=== PATIENT | male | born 1940 | race Caucasian/White ===

== ENCOUNTER → 2018-07-12 07:57 | Outpatient (CLI) | payer OTHER, SELFPAY ==
[2018-07-12 08:49] LABS: Add Manual Diff / Slide Review NO; Basophils Percent Auto 0.5 % (0-2); Eosinophils Percent Auto 3.4 % (2-4); Hematocrit 46.3 % (41-53); Hemoglobin 15.8 g/dL (13.5-17.5); Lymphocytes Percent Auto 32.4 % (25-40); Mean Corpuscular HGB Conc 34.1 % (30-36); Mean Corpuscular Hemoglobin 31.7 PG (26-34); Mean Corpuscular Volume 92.9 fL (80-100); Monocytes Percent Auto 9.3 % (3-14); Neutrophils Absolute Auto 4200 /uL (3000-5900); Neutrophils Percent Auto 54.4 % (50-75); Platelet Count 225 X10^3/uL (150-400); Red Blood Cell Count 4.98 X10^6/uL (4.5-5.9); Red Cell Distribution Width 12.8 % (11.6-14.8); White Blood Cell Count 7.8 X10^3/uL (4.5-11.0)
[2018-07-12 08:59] LABS: Alanine Aminotransferase 41 IU/L (21-72); Albumin 4.4 g/dL (3.5-5.0); Albumin Globulin Ratio 1.6 (1.0-2.8); Alkaline Phosphatase 60 U/L (38-126); Aspartate Aminotransferase 35 IU/L (17-59); BUN Creatinine Ratio 23.3 (6-22); Blood Urea Nitrogen 21 mg/dL (9-20); Calcium 9.5 mg/dL (8.4-10.2); Carbon Dioxide 28 mmol/L (22-32); Chloride 106 mmol/L (98-107); Cholesterol 126 mg/dL (140-199); Estimated Glomerular Filt Rate > 60.0 mL/min (>60); Globulin 2.8 g/dL (1.7-4.1); Glucose 108 mg/dL (80-110); HDL Cholesterol 47 mg/dL (40-60); HEMOLYSIS < 15 (0-50); LDL Cholesterol Calculated 61 mg/dL (<100); Sodium 147 mmol/L (137-145); Total Protein 7.2 g/dL (6.3-8.2); Triglycerides 89 mg/dL (35-150)
[2018-07-12 09:01] LABS: Hemoglobin A1C% w Est Avg Glu 6.1 % (4.0-6.0)
[2018-07-12 09:27] LABS: Prostate Specific Antigen Scrn 0.228 ng/mL (0.1-4.0)
[2018-07-12 09:39] LABS: Thyroid Stimulating Hormone 2.73 uIU/mL (0.47-4.68)
== END ==
PROVIDERS: PCP Family Medicine; Visit Provider Family Medicine
DX: C61 Malignant neoplasm of prostate (principal); E11.9 Type 2 diabetes mellitus without complications; E78.5 Hyperlipidemia, unspecified; I10 Essential (primary) hypertension; I25.10 Atherosclerotic heart disease of native coronary artery without angina pectoris; Z12.5 Encounter for screening for malignant neoplasm of prostate
CPT/HCPCS: 36415; 80053; 80061; 83036; 84443; 85025; G0103

== ENCOUNTER → 2018-10-16 08:11 | Outpatient (CLI) | payer OTHER, SELFPAY ==
--- NOTE | 2018-10-16 08:18 | DI.MRI.S_ITS ---
PROCEDURE: MR HEAD/BRAIN WO CON INDICATIONS: headach TECHNIQUE: Non-contrast axial T1 spin echo, axial T2 fast spin echo, sagittal and axial FLAIR, coronal T2 fast spin echo, axial gradient echo, axial diffusion and ADC through the brain. COMPARISON: None. FINDINGS: Image quality: Excellent. CSF spaces: Ventricles appear symmetric in size and shape. Basal cisterns are patent. No extra-axial fluid collections. Brain: No intracranial bleeds or mass effects. There is cerebral volume loss for age. There are periventricular and deep white matter chronic small vessel ischemic changes. Brainstem appears normal. Diffusion-weighted images show no acute ischemic insults. No chronic ischemic insults. Normal intravascular flow voids are present. Skull and face: Calvarial bone marrow is normal in signal. Orbits are normal. Sinuses: Sinuses and mastoids are clear. IMPRESSION: Scattered nonspecific white matter signal changes, statistically represent chronic microvascular ischemic disease, although other demyelinating, infectious, inflammatory, neurodegenerative etiologies are in the differential. Please correlate clinically. No evidence of acute ischemia. Dictated by: Farshad Raphael M.D. on 10/16/2018 at 9:23 Approved by: Farshad Raphael M.D. on 10/16/2018 at 9:29
== END ==
PROVIDERS: Family Provider Family Medicine; PCP Family Medicine; Visit Provider Family Medicine
DX: R51 Headache (principal)
CPT/HCPCS: 70551

== ENCOUNTER 2018-12-18 07:11 | Day surgery (SDC) | payer OTHER, SELFPAY ==
--- NOTE | 2018-12-18 | PATH_ITS ---
[facility] Accession Number: [id number] . 01 Material submitted: . HEPATIC FLEXURE POLYP . 02 Diagnosis: Biopsy, Hepatic Flexure Polyp: Tubular adenoma involving all biopsy fragments. MRV/12/19/2018 . 02 Electronically signed: . Ronnie Velasquez MD, Pathologist NPI- [id number] . 01 Gross description: . HEPATIC FLEXURE POLYP: Received in formalin are 2 fragment(s) of ballesteros, soft tissue measuring 0.3 x 0.2 x 0.2 cm to 0.4 x 0.4 x 0.3 cm which is entirely submitted and submitted entirely in 1 cassette(s) /DMC /DMC . 02 Pathologist provided ICD-10: D12.3 . 02 CPT . 383948 Performed at: 01 [facility] [address] [id number] MD Roland Cesar MD Phone: [phone] Performed at: 02 [facility] [address] [place], [place] [id number] MD Consuelo Humphrey MD Phone: [phone]
[2018-12-18 07:39] VITALS: BP 154/84; PULSE 93; RESP 18; TEMP 36.2; O2SAT 98
--- NOTE | 2018-12-18 08:32 | PM.HP.1 ---
History of Present Illness Date Patient Seen: 12/18/18 Time Patient Seen: 08:32 Chief complaint: [id number] SCREENING COLONOSCOPY Narrative: 78-year-old male who presents for colorectal screening. His last examination for such was actually 17 years ago. On further history today he denies any recent gastrointestinal symptoms. No nausea, vomiting, loss of appetite, unexplained weight loss, abdominal pain, change in bowel habits, diarrhea, constipation, melena, hematochezia, or bright red blood per rectum. Patient History Medical History Arm pain (Chronic ~1985) Elevated PSA (Chronic ~11/02/10) Hearing deficit (Chronic) History of urinary incontinence (Chronic ~2010) Prostate cancer (Chronic ~2010) Chicken pox (Resolved ~1947) Mumps (Resolved ~1951) Surgical History Anesthesia (Resolved) History of prostate surgery (Resolved ~2010) History of surgery (Resolved ~04/09/14) Family History Father Heart disease Mother No problems noted. Sister No problems noted. Family & Social History Family History Father Heart disease Mother No problems noted. Sister No problems noted. Meds Home Medications Medication Instructions Recorded Confirmed Type aspirin [Aspir-81] 81 mg PO DAILY #0 05/25/17 12/18/18 History cholecalciferol (vitamin D3) 5,000 units PO DAILY #0 05/25/17 12/18/18 History multivitamin [Multiple Vitamins] 1 tab PO DAILY #0 05/25/17 12/18/18 History omega 7-pqi-dwi-fish oil [Fish Oil] 1,000 mg PO DAILY #0 05/25/17 12/18/18 History atorvastatin 80 mg tablet 80 mg PO HS #100 tab 05/23/18 12/18/18 Rx lisinopril 5 mg tablet 5 mg PO QDAY #90 tab 05/23/18 12/18/18 Rx metoprolol tartrate 25 mg tablet 25 mg PO BID #180 tab 05/23/18 12/18/18 Rx alprazolam 0.25 mg tablet 0.25 mg PO .prn #4 tab 10/11/18 12/18/18 Rx metformin 500 mg PO BIDCC 12/18/18 12/18/18 History Allergies Allergy/AdvReac Type Severity Reaction Status Date / Time No Known Drug Allergies Allergy Verified 12/18/18 07:26 Review of Systems Review of Systems All systems reviewed & are unremarkable except as noted in HPI and below Exam Vital Signs (past 8 hours): - 12/18/18 07:39 Temperature 97.2 F L Pulse Rate 93 H Respiratory Rate 18 Blood Pressure 154/84 H Pulse Oximetry 98 Oxygen Delivery Method Room Air Narrative Exam Narrative: Well-nourished well-developed male in no acute distress. Alert oriented x3. is at the bedside for my entire visit. Sclera nonicteric Regular rate rhythm Abdomen soft, nondistended, nontender No audible wheezes Extremities show no clubbing or cyanosis Objective Labs Labs: No recent laboratory or radiographic studies for review. Assessment & Plan Assessment & Plan narrative: 78-year-old male requiring colorectal screening since it has been considerable interval from his last examination. Colonoscopy is once again recommended. Technical details of the procedure were reviewed. Risks, benefits, and alternatives were explained. Risks including but not limited to sedation, aspiration, bleeding, pain, missed lesion, incomplete examination, need for further radiographic studies, colonic perforation, need for major abdominal surgery, and all attendant risks of major surgery were explained in detail. All questions were answered to his satisfaction, and he voiced understanding. Consent was placed on the chart. We will proceed as above.
--- NOTE | 2018-12-18 08:34 | PM.PREOP ---
Pre-operative Note Interval Note History & Physical reviewed/Exam performed by Physician: Yes Changes to H&P: No H&P completed within 30 days and has changed as indicated here:: Patient seen and examined today. History and physical examination placed on the chart. Obviously, there have been no changes in the last 15 min. Proceed with colonoscopy today as planned. ASA Class (for procedural sedation): II
[2018-12-18] MEDS: MIDAZOLAM 5 MG/5 ML VIAL IV (08:51)
[2018-12-18] MEDS: fentaNYL 250 MCG/5 ML INJ IV (08:51)
--- NOTE | 2018-12-18 09:00 | PM.OP.ENDO ---
Operative Date/Time/Diagnoses Date of procedure: 12/18/18 Time of procedure: 09:00 Pre-op diagnosis: Colorectal screening Post-op diagnosis: other (Wagoner diverticulosis and colon polyp) Procedure & Clinicians Study performed: 1. Sedation per surgeon 2. Colonoscopy with cold forceps polypectomy Same procedure as scheduled: Yes Indications: 78-year-old male whose last colonoscopy was 17 years ago. He presents now for colorectal screening. Colonoscopy is once again recommended. Surgeon: Cesar Graham Procedure Notes SCOAP/Timeout: Yes Procedure in detail: After obtaining informed consent, the patient was brought to the GI suite and placed in the left lateral decubitus position on the examination table. After placement of appropriate monitors, the patient was given incremental doses of Versed and Fentanyl until an appropriate level of sedation was achieved. A time out was held per SCOAP protocol. A digital rectal examination was performed and did not reveal any masses or obstructing lesions. The colonoscope was gently passed into the patient's anus and the entire colon navigated to the level of the cecum with minimal difficulty. Terminal ileum was intubated and noted to be grossly normal. Once in the cecum, the scope was withdrawn being sure to go before and beyond all mucosal folds and prominences and get an excellent examination. The findings are noted above. At the level of the rectal vault, the scope was retroflexed and the internal anal canal was examined. The scope was straightened and air aspirated from the colon. The instrument was removed from the patient's body and the procedure was concluded. The patient was allowed to awaken from sedation without difficulty and taken to the post-anesthesia care unit in good condition. Scope withdrawal time: 7:07 min Sedation minutes: 21 Findings: diverticulosis, internal hemorrhoids (Grade 2) and polyp Specimen(s): other (1. Hepatic flexure polyp) Complications: none Recommendations: Colonscopy in 5 years, High fiber diet and Will call with biopsy results Plan for aftercare: 1. Discharge home Follow up: as needed Disposition: PACU
[2018-12-18 09:03] VITALS: BP 121/73; PULSE 82; RESP 15; TEMP 36.7; O2SAT 95
[2018-12-18 09:08] VITALS: BP 137/85; PULSE 85; RESP 14; O2SAT 95
[2018-12-18 09:13] VITALS: BP 127/83; PULSE 81; RESP 16; TEMP 36.3; O2SAT 96
[2018-12-18 09:20] VITALS: BP 138/80; PULSE 78; RESP 14; TEMP 36.5; O2SAT 96
== END 2018-12-18 09:32 | disposition home or self-care (01) ==
PROVIDERS: Family Provider Family Medicine; PCP Family Medicine; Visit Provider Surgery
PROC: 0DJD8ZZ Inspection of Lower Intestinal Tract, Via Natural or Artificial Opening Endoscopic (ICD-10-PCS; CPT 45378; principal; 2018-12-18 08:45)
DX: Z12.11 Encounter for screening for malignant neoplasm of colon (principal); K57.30 Diverticulosis of large intestine without perforation or abscess without bleeding; K64.1 Second degree hemorrhoids; D12.3 Benign neoplasm of transverse colon
CPT/HCPCS: 45380; 99152; J2250; J3010

== ENCOUNTER → 2019-03-14 09:32 | Outpatient (CLI) | payer OTHER, SELFPAY ==
[2019-03-14 11:05] LABS: Hemoglobin A1C% w Est Avg Glu 5.7 % (4.0-6.0)
[2019-03-14 11:21] LABS: Prostate Specific Antigen Scrn 0.335 ng/mL (0.1-4.0)
== END ==
PROVIDERS: Family Provider Family Medicine; PCP Family Medicine; Visit Provider Family Medicine
DX: C61 Malignant neoplasm of prostate (principal)
CPT/HCPCS: 36415; 83036; G0103

== ENCOUNTER → 2019-11-05 08:12 | Outpatient (CLI) | payer MEDICARE, SELFPAY ==
[2019-11-05 09:16] LABS: Add Manual Diff / Slide Review NO; Basophils Absolute Auto 0 /uL (0-100); Basophils Percent Auto 0.4 % (0-2); Eosinophils Absolute Auto 200 /uL (0-450); Eosinophils Percent Auto 2.3 % (2-4); Hemoglobin 15.4 g/dL (13.5-17.5); Lymphocytes Absolute Auto 1900 /uL (1100-4500); Lymphocytes Percent Auto 26.6 % (25-40); Mean Corpuscular HGB Conc 34.2 % (30-36); Mean Corpuscular Hemoglobin 32.5 PG (26-34); Mean Corpuscular Volume 94.8 fL (80-100); Monocytes Absolute Auto 900 /uL (0-900); Monocytes Percent Auto 11.8 % (3-14); Neutrophils Absolute Auto 4200 /uL (1500-7000); Neutrophils Percent Auto 58.9 % (50-75); Platelet Count 227 X10^3/uL (150-400); Red Blood Cell Count 4.75 X10^6/uL (4.5-5.9); Red Cell Distribution Width 14.1 % (11.6-14.8); White Blood Cell Count 7.2 X10^3/uL (4.5-11.0)
[2019-11-05 09:21] LABS: Hemoglobin A1C% w Est Avg Glu 5.6 % (4.0-6.0)
[2019-11-05 09:27] LABS: Alanine Aminotransferase 29 IU/L (<50); Albumin 4.3 g/dL (3.5-5.0); Albumin Globulin Ratio 1.3 (1.0-2.8); Alkaline Phosphatase 74 U/L (38-126); Aspartate Aminotransferase 37 IU/L (17-59); BUN Creatinine Ratio 21.1 (6-22); Bilirubin Total 0.8 mg/dL (0.2-1.3); Blood Urea Nitrogen 19 mg/dL (9-20); Carbon Dioxide 25 mmol/L (22-32); Chloride 105 mmol/L (98-107); Cholesterol 129 mg/dL (140-199); Estimated Glomerular Filt Rate > 60.0 mL/min (>60); Globulin 3.4 g/dL (1.7-4.1); Glucose 118 mg/dL (80-110); HDL Cholesterol 43 mg/dL (40-60); HEMOLYSIS < 15 (0-50); LDL Cholesterol Calculated 73 mg/dL (<100); Sodium 142 mmol/L (137-145); Total Protein 7.7 g/dL (6.3-8.2); Triglycerides 67 mg/dL (35-150)
== END ==
PROVIDERS: Family Provider Family Medicine; PCP Family Medicine; Referring Provider Family Medicine; Visit Provider Family Medicine
DX: E11.9 Type 2 diabetes mellitus without complications (principal); I25.10 Atherosclerotic heart disease of native coronary artery without angina pectoris
CPT/HCPCS: 36415; 80053; 80061; 83036; 85025

== ENCOUNTER → 2019-11-15 06:43 | Outpatient (CLI) | payer MEDICARE, SELFPAY ==
--- NOTE | 2019-11-15 06:57 | DI.ECHO.S_ITS ---
Echocardiogram Report + + :Name: WINSTON MARIE Study Date: 11/15/2019 Height: 70 in : :[facility] Weight: 188 lb : : Gender: Male BSA: 2.0 m2 : :: 1940 Age: 79 yrs BP: 124/78 mmHg: :Reason For Study: DIZZINESS : :Ordering Physician: Dr. Gooden : :Jh Performed By: Chary Bobby : :Referring: WILLA REID : + + Interpretation Summary 1) Normal left ventricular size, thickness, wall motion, and systolic function (EF 60-65%). 2) Normal right ventricular size and function. 3) No significant valvular abnormalities. 4) No prior Echo available for comparison. Procedure: A two-dimensional transthoracic echocardiogram with color flow and Doppler was performed. The study quality was technically adequate. There is no prior echocardiogram noted for this patient. The patient was in normal sinus rhythm during the exam. Left Ventricle: The left ventricle is normal in size and wall thickness. The ejection fraction is estimated to be 60-65%. Diastolic parameters suggest probable normal left ventricular diastolic function and normal filling pressures. Right Ventricle: The right ventricle is normal in size and function. Atria: Both atria are normal in size. There is no Doppler evidence for an interatrial shunt. Mitral Valve: The mitral valve is normal in structure and function. There is mild mitral annular calcification. There is no mitral regurgitation noted. Aortic Valve: The aortic valve is trileaflet. The aortic valve opens well. There is no aortic valve stenosis. No aortic regurgitation is present. Tricuspid Valve: The tricuspid valve is normal in structure and function. There is a trace or physiologic amount of tricuspid regurgitation. Pulmonary artery pressures cannot be estimated because of the lack of a measurable TR jet velocity. Pulmonic Valve: The pulmonic valve is not well seen, but is grossly normal. There is no pulmonic valvular regurgitation. Great Vessels: The aortic root is normal size. The ascending aorta is at the upper limits of normal in size. The aortic arch is at the upper limits of normal in size. The IVC is of normal diameter and collapses greater than 50% with a sniff. This suggests a low right atrial pressure of 3 mm Hg. Pericardium/ Pleura There is no pericardial effusion. MMode/2D Measurements & Calculations LVIDd: 4.5 cm LVOT diam: 2.2 cm LVIDs: 3.2 cm Ao root diam: 3.4 cm FS: 29.0 % asc Aorta Diam: 3.5 cm EPSS: 0.72 cm Ao Arch Diam (Prox Trans): 3.3 cm IVSd: 1.0 cm LVPWd: 1.0 cm LV cummins. diameter/BSA (cm/m^2): 2.2 LV sys. diameter/BSA (cm/m^2): 1.6 LA A2 area: 17.8 cm2 RA long axis: 4.3 cm LA A4 area: 13.8 cm2 RA area: 10.3 cm2 LA length (vol): 4.5 cm RA vol: 20.9 ml LA vol: 46.1 ml RA : 10.3 ml/m2 LA vol index: 22.7 ml/m2 IVC diam: 1.2 cm RVD1 (basal): 3.2 cm RVD2 (mid): 3.1 cm TAPSE: 2.4 cm Doppler Measurements & Calculations Ao V2 max: 128.9 cm/sec LVOT Max Nino: 110.9 cm/sec Ao V2 mean: 94.6 cm/sec LV V1 max P.9 mmHg Ao max P.7 mmHg LV V1 VTI: 22.9 cm Ao mean P.9 mmHg DARRON(I,D): 3.2 cm2 Ao V2 VTI: 27.5 cm DARRON(V,D): 3.3 cm2 sev ratio: 0.83 DARRON indexed to BSA (cm^2/m^2): 1.6 MV E max nino: 67.3 cm/sec PA V2 max: 92.6 cm/sec MV A max nino: 80.6 cm/sec PA V2 mean: 61.5 cm/sec MV E/A: 0.84 PA mean P.7 mmHg Med Peak E' Nino: 5.0 cm/sec PA pr(Accel): 32.3 mmHg E/E' med: 13.3 PA Accel Time: 0.09 sec Lat Peak E' Nino: 7.5 cm/sec E/E' lat: 9.0 E/e' average: 11.2 MV dec time: 0.35 sec MV P1/2t: 101.1 msec MV P1/2t max nino: 68.1 cm/sec SV(LVOT): 86.8 ml MVA(P1/2t): 2.2 cm2 _ Reading Physician:09:32 AM
== END ==
PROVIDERS: Family Provider Family Medicine; PCP Family Medicine; Referring Provider Family Medicine; Visit Provider Family Medicine
DX: I49.8 Other specified cardiac arrhythmias (principal); I25.10 Atherosclerotic heart disease of native coronary artery without angina pectoris; R42 Dizziness and giddiness; I45.9 Conduction disorder, unspecified; Z95.5 Presence of coronary angioplasty implant and graft
CPT/HCPCS: 93306

== ENCOUNTER → 2019-11-15 10:49 | Outpatient (CLI) | payer MEDICARE, SELFPAY ==
--- NOTE | 2019-12-07 15:56 | P.HOLT.S_ITS ---
Switchboard Mechanic Report Referral & Results Date Patient Seen: 11/15/19 Requesting provider: Giacomo Peñaloza Indication: Dizziness Duration of monitoring (days): 14 Diary information: There were 10 patient triggered events and 5 patient diary entries All 15 of these events were associated with sinus rhythm and supraventricular dysrhythmias or PACs Data: Minimum heart rate identified was 50 beats per minute at 23:20 on 11/24/2019 Maximum sinus heart rate was 125 beats per minute at 13:55 on 11/22/2019 Maximum overall heart rate was 190 beats per minute at 14:54 on 11/26/2019 during a 4 beat run of SVT Approximately 3.4% of identified beats were PACs or supraventricular ectopic in origin Less than 1% of identified beats were ventricular ectopic in origin 7 runs of SVT/atrial tachycardia were identified by the computer longest lasting 32 seconds at a rate of 112, which suggest atrial tachycardia rather than true SVT Impression: Minor supraventricular dysrhythmias as above. No clear correlation between patient's symptoms any serious dysrhythmia. Patient's symptoms might be due to occasional PACs Clinical correlation suggested
== END ==
PROVIDERS: Family Provider Family Medicine; PCP Family Medicine; Referring Provider Family Medicine; Visit Provider Family Medicine
DX: R42 Dizziness and giddiness (principal); I49.8 Other specified cardiac arrhythmias
CPT/HCPCS: 0296T; 0298T

== ENCOUNTER → 2020-02-01 10:17 | Outpatient (CLI) | payer MEDICARE, SELFPAY ==
--- NOTE | 2020-02-02 12:33 | DI.NM.S_ITS ---
DATE OF SERVICE: 02/01/2020 PROCEDURE PERFORMED:: Exercise treadmill stress and rest myocardial perfusion study with gating to assess ejection fraction and regional wall motion performed as a one day protocol. ORDERING PROVIDER:: Dr. Magali Avery. INDICATIONS:: The patient is a 79-year-old male with a history of LAD stenting, who now presents with recurrent exertional chest discomfort. EXERCISE TREADMILL TESTING:: The patient was able to exercise for 6 minutes, 17 seconds on a standard Romulo protocol, suggesting average exercise capacity with an ELIZABET of 0%. He had a normal heart rate and blood pressure response to exercise, achieving a maximum heart rate of 132 bpm (92% of his predicted maximum). He had no chest discomfort. His resting ECG shows a right bundle branch block, but relatively normal ST segments. With exercise, there were no significant ST-segment shifts or arrhythmias. At 5 minutes, 20 seconds of exercise, had a heart rate of 123 bpm, 26.3 mCi of technetium-99m Myoview was injected and the patient was imaged 20 minutes later using a gated SPECT acquisition protocol. Earlier in the day, he had been injected with 11.0 mCi of technetium-99m Myoview at rest and was imaged 30 minutes later using a gated SPECT acquisition protocol. FINDINGS: 1. RAW DATA: There is fairly good myocardial tracer uptake, although there is fairly clear evidence for diaphragmatic attenuation. The heart/lung ratio is normal at 0.34 and the TID ratio is normal at 0.77. 2. QUANTITATED GATED SPECT: Post-stress ejection fraction is estimated at 77% without any focal wall motion abnormality and specifically the inferior wall appears to have normal contractility. The resting images show a similar contraction pattern with an ejection fraction of 75% with a resting end-diastolic volume of 89 mL. 3. MYOCARDIAL PERFUSION IMAGING: Immediate post-stress supine images shows a fairly normal myocardial perfusion pattern, although with mildly reduced counts in the proximal to mid inferior wall in a pattern that would be consistent with diaphragmatic attenuation, supported by its complete resolution on the prone images, which revealed a completely normal perfusion pattern without any perfusion defects. The resting images show an identical perfusion pattern to that of the post-stress perfusion images without any significant improvement in the inferior defect. CONCLUSIONS:: 1. Normal myocardial perfusion study. 2. There is a mild fixed proximal to mid inferior wall defect that resolves completely on prone imaging, consistent with diaphragmatic attenuation. There is no evidence for any significant myocardial ischemia or previous myocardial infarction. 3. Normal left ventricular systolic function without any focal wall motion abnormality. 4. Average exercise capacity without angina or ECG evidence of ischemia. Leo Scruggs - Manuel/jose doc#: [id number]/job#: [id number] dd: 02/02/2020 11:23:00 dt: 02/02/2020 12:03:00 DICTATING MD/COPIES TO: Puma Parson MD; SILVIANO Edwards; Magali Avery MD COPIES MNE: ROSEMARY; ;
== END ==
PROVIDERS: Family Provider Family Medicine; PCP Family Medicine; Referring Provider Internal Medicine Cardiovascular Disease; Visit Provider Internal Medicine Cardiovascular Disease
DX: R07.89 Other chest pain (principal); I25.10 Atherosclerotic heart disease of native coronary artery without angina pectoris; Z95.5 Presence of coronary angioplasty implant and graft
CPT/HCPCS: 78452; 93017; A9502

== ENCOUNTER → 2020-09-17 08:42 | Outpatient (CLI) | payer MEDICARE, SELFPAY ==
[2020-09-17 10:42] LABS: Add Manual Diff / Slide Review NO; Basophils Absolute Auto 0 /uL (0-100); Basophils Percent Auto 0.6 % (0-2); Eosinophils Absolute Auto 200 /uL (0-450); Eosinophils Percent Auto 2.3 % (2-4); Hematocrit 45.1 % (41-53); Hemoglobin 15.4 g/dL (13.5-17.5); Lymphocytes Absolute Auto 2700 /uL (1100-4500); Lymphocytes Percent Auto 31.6 % (25-40); Mean Corpuscular HGB Conc 34.2 % (30-36); Mean Corpuscular Hemoglobin 32.2 PG (26-34); Mean Corpuscular Volume 94.4 fL (80-100); Monocytes Absolute Auto 800 /uL (0-900); Monocytes Percent Auto 9.5 % (3-14); Neutrophils Absolute Auto 4800 /uL (1500-7000); Platelet Count 202 X10^3/uL (150-400); Red Blood Cell Count 4.78 X10^6/uL (4.5-5.9); Red Cell Distribution Width 13.4 % (11.6-14.8); White Blood Cell Count 8.6 X10^3/uL (4.5-11.0)
[2020-09-17 11:08] LABS: BUN Creatinine Ratio 24.3 (6-22); Blood Urea Nitrogen 25 mg/dL (9-20); Calcium 9.4 mg/dL (8.4-10.2); Carbon Dioxide 26 mmol/L (22-32); Chloride 106 mmol/L (98-107); Cholesterol 99 mg/dL (140-199); Estimated Glomerular Filt Rate > 60.0 mL/min (>60); Glucose 112 mg/dL (80-110); HDL Cholesterol 48 mg/dL (40-60); HEMOLYSIS < 15 (0-50); LDL Cholesterol Calculated 32 mg/dL (<100); Potassium 4.5 mmol/L (3.4-5.1); Sodium 139 mmol/L (137-145); Triglycerides 97 mg/dL (35-150)
== END ==
PROVIDERS: Family Provider Family Medicine; PCP Family Medicine; Referring Provider Internal Medicine Cardiovascular Disease; Visit Provider Internal Medicine Cardiovascular Disease
DX: I10 Essential (primary) hypertension (principal); E78.5 Hyperlipidemia, unspecified
CPT/HCPCS: 36415; 80048; 80061; 85025

== ENCOUNTER → 2021-04-29 10:12 | Outpatient (CLI) | payer MEDICARE, SELFPAY ==
[2021-04-29 10:38] LABS: COVID19 -Nasal RAPID Negative (Negative)
== END ==
PROVIDERS: Family Provider Family Medicine; PCP Family Medicine; Visit Provider Student in an Organized Health Care Education/Training Program
DX: R05 Cough (principal); R43.2 Parageusia; R53.83 Other fatigue; Z20.822 Contact with and (suspected) exposure to COVID-19
CPT/HCPCS: 87635

== ENCOUNTER → 2021-12-02 08:03 | Outpatient (CLI) | payer MEDICARE, SELFPAY ==
[2021-12-02 09:57] LABS: Hemoglobin A1C% w Est Avg Glu 6.6 % (4.0-6.0)
[2021-12-02 09:59] LABS: Add Manual Diff / Slide Review NO; Basophils Absolute Auto 100 /uL (0-100); Basophils Percent Auto 0.7 % (0-2); Eosinophils Absolute Auto 100 /uL (0-450); Eosinophils Percent Auto 1.4 % (2-4); Hematocrit 46.7 % (41-53); Hemoglobin 15.7 g/dL (13.5-17.5); Lymphocytes Absolute Auto 2100 /uL (1100-4500); Lymphocytes Percent Auto 26.8 % (25-40); Mean Corpuscular HGB Conc 33.7 % (30-36); Mean Corpuscular Hemoglobin 32.1 PG (26-34); Mean Corpuscular Volume 95.4 fL (80-100); Monocytes Absolute Auto 600 /uL (0-900); Monocytes Percent Auto 7.7 % (3-14); Neutrophils Absolute Auto 4900 /uL (1500-7000); Neutrophils Percent Auto 63.4 % (50-75); Platelet Count 199 X10^3/uL (150-400); Red Cell Distribution Width 14.1 % (11.6-14.8); White Blood Cell Count 7.7 X10^3/uL (4.5-11.0)
[2021-12-02 10:20] LABS: Alanine Aminotransferase 51 IU/L (<50); Albumin 4.7 g/dL (3.5-5.0); Albumin Globulin Ratio 1.5 (1.0-2.8); Alkaline Phosphatase 44 U/L (38-126); Aspartate Aminotransferase 50 IU/L (17-59); BUN Creatinine Ratio 16.2 (6-22); Bilirubin Total 0.9 mg/dL (0.2-1.3); Blood Urea Nitrogen 17 mg/dL (9-20); Calcium 9.5 mg/dL (8.4-10.2); Carbon Dioxide 28 mmol/L (22-32); Chloride 104 mmol/L (98-107); Cholesterol 109 mg/dL (140-199); Estimated Glomerular Filt Rate > 60.0 mL/min (>60); Globulin 3.1 g/dL (1.7-4.1); Glucose 121 mg/dL (80-110); HDL Cholesterol 54 mg/dL (40-60); HEMOLYSIS < 15 (0-50); LDL Cholesterol Calculated 41 mg/dL (<100); Potassium 4.5 mmol/L (3.4-5.1); Sodium 140 mmol/L (137-145); Total Protein 7.8 g/dL (6.3-8.2); Triglycerides 70 mg/dL (35-150)
[2021-12-02 10:51] LABS: Prostate Specific Antigen Scrn 0.695 ng/mL (0.1-4.0)
== END ==
PROVIDERS: Family Provider Family Medicine; PCP Family Medicine; Referring Provider Family Medicine; Visit Provider Family Medicine
DX: C61 Malignant neoplasm of prostate (principal); E11.9 Type 2 diabetes mellitus without complications; E78.2 Mixed hyperlipidemia; Z12.5 Encounter for screening for malignant neoplasm of prostate; I10 Essential (primary) hypertension
CPT/HCPCS: 36415; 80053; 80061; 83036; 85025; G0103

== ENCOUNTER → 2022-12-29 07:26 | Outpatient (CLI) | payer MEDICARE, SELFPAY ==
[2022-12-29 08:32] LABS: Add Manual Diff / Slide Review NO; Basophils Absolute Auto 0 /uL (0-100); Basophils Percent Auto 0.6 % (0-2); Eosinophils Absolute Auto 200 /uL (0-450); Hematocrit 43.5 % (41-53); Hemoglobin 14.6 g/dL (13.5-17.5); Lymphocytes Absolute Auto 2800 /uL (1100-4500); Lymphocytes Percent Auto 38.8 % (25-40); Mean Corpuscular HGB Conc 33.6 % (30-36); Mean Corpuscular Hemoglobin 30.9 PG (26-34); Monocytes Absolute Auto 700 /uL (0-900); Monocytes Percent Auto 9.9 % (3-14); Neutrophils Absolute Auto 3400 /uL (1500-7000); Neutrophils Percent Auto 47.7 % (50-75); Platelet Count 217 X10^3/uL (150-400); Red Blood Cell Count 4.73 X10^6/uL (4.5-5.9); Red Cell Distribution Width 14.1 % (11.6-14.8); White Blood Cell Count 7.2 X10^3/uL (4.5-11.0)
[2022-12-29 09:05] LABS: Microalbumi Creatinin Ratio Ur 17.9 ug/mg CR (<30); Microalbumin Urine Random 4.4 mg/dL (0-1.6)
[2022-12-29 09:27] LABS: Alanine Aminotransferase 47 IU/L (<50); Albumin 3.8 g/dL (3.5-5.0); Albumin Globulin Ratio 1.2 (1.0-2.8); Alkaline Phosphatase 45 U/L (38-126); Aspartate Aminotransferase 46 IU/L (17-59); BUN Creatinine Ratio 18.4 (6-22); Bilirubin Total 0.6 mg/dL (0.2-1.3); Blood Urea Nitrogen 16 mg/dL (9-20); Carbon Dioxide 30 mmol/L (22-32); Chloride 107 mmol/L (98-107); Cholesterol 103 mg/dL (140-199); Estimated Glomerular Filt Rate > 60 mL/min (>60); Globulin 3.3 g/dL (1.7-4.1); Glucose 113 mg/dL (80-110); HDL Cholesterol 51 mg/dL (40-60); HEMOLYSIS < 15 (0-50); LDL Cholesterol Calculated 35 mg/dL (<100); Potassium 4.8 mmol/L (3.4-5.1); Sodium 142 mmol/L (137-145); Total Protein 7.1 g/dL (6.3-8.2); Triglycerides 84 mg/dL (35-150)
[2022-12-29 10:00] LABS: Prostate Specific Antigen 1.49 ng/mL (0.10-4.00)
[2022-12-30 06:24] LABS: Labcorp Hemoglobin (Hb) A1c 6.7 % (4.8-5.6)
== END ==
PROVIDERS: Family Provider Family Medicine; PCP Family Medicine; Referring Provider Family Medicine; Visit Provider Family Medicine
DX: C61 Malignant neoplasm of prostate (principal); E11.9 Type 2 diabetes mellitus without complications; E78.2 Mixed hyperlipidemia; I10 Essential (primary) hypertension; I25.10 Atherosclerotic heart disease of native coronary artery without angina pectoris; Z90.79 Acquired absence of other genital organ(s)
CPT/HCPCS: 36415; 80053; 80061; 82043; 82570; 83036; 84153; 85025

== ENCOUNTER → 2023-02-11 11:31 | Outpatient (CLI) | payer MEDICARE, SELFPAY ==
[2023-02-11 12:37] LABS: Add Manual Diff / Slide Review NO; Basophils Absolute Auto 0 /uL (0-100); Basophils Percent Auto 0.5 % (0-2); Eosinophils Absolute Auto 100 /uL (0-450); Eosinophils Percent Auto 1.3 % (2-4); Hematocrit 44.6 % (41-53); Hemoglobin 15.3 g/dL (13.5-17.5); Lymphocytes Absolute Auto 2000 /uL (1100-4500); Lymphocytes Percent Auto 25.2 % (25-40); Mean Corpuscular HGB Conc 34.3 % (30-36); Mean Corpuscular Hemoglobin 31.6 PG (26-34); Mean Corpuscular Volume 92.1 fL (80-100); Monocytes Absolute Auto 800 /uL (0-900); Monocytes Percent Auto 9.7 % (3-14); Neutrophils Absolute Auto 4900 /uL (1500-7000); Neutrophils Percent Auto 63.3 % (50-75); Platelet Count 200 X10^3/uL (150-400); Red Blood Cell Count 4.84 X10^6/uL (4.5-5.9); Red Cell Distribution Width 14.2 % (11.6-14.8); White Blood Cell Count 7.8 X10^3/uL (4.5-11.0)
[2023-02-11 13:04] LABS: C-Reactive Protein Quant < 0.5 mg/dL (<1.0)
[2023-02-11 13:47] LABS: Erythrocyte Sedimentation Rate 3 MM/HR (0-15)
== END ==
PROVIDERS: Family Provider Family Medicine; PCP Family Medicine; Referring Provider Family Medicine; Visit Provider Family Medicine
DX: H57.12 Ocular pain, left eye (principal)
CPT/HCPCS: 36415; 85025; 85651; 86140

== ENCOUNTER → 2023-03-21 15:16 | Outpatient (CLI) | payer MEDICARE, SELFPAY ==
[2023-03-21 17:12] LABS: Add Manual Diff / Slide Review NO; Basophils Absolute Auto 100 /uL (0-100); Basophils Percent Auto 0.6 % (0-2); Eosinophils Absolute Auto 200 /uL (0-450); Eosinophils Percent Auto 2.1 % (2-4); Hematocrit 45.8 % (41-53); Hemoglobin 15.6 g/dL (13.5-17.5); Lymphocytes Absolute Auto 2500 /uL (1100-4500); Lymphocytes Percent Auto 28.3 % (25-40); Mean Corpuscular HGB Conc 34.1 % (30-36); Mean Corpuscular Hemoglobin 31.7 PG (26-34); Mean Corpuscular Volume 92.9 fL (80-100); Monocytes Absolute Auto 900 /uL (0-900); Monocytes Percent Auto 10.7 % (3-14); Neutrophils Absolute Auto 5200 /uL (1500-7000); Neutrophils Percent Auto 58.3 % (50-75); Platelet Count 231 X10^3/uL (150-400); Red Blood Cell Count 4.94 X10^6/uL (4.5-5.9); Red Cell Distribution Width 13.6 % (11.6-14.8); White Blood Cell Count 8.9 X10^3/uL (4.5-11.0)
[2023-03-21 17:41] LABS: Alanine Aminotransferase 59 IU/L (<50); Albumin 4.3 g/dL (3.5-5.0); Albumin Globulin Ratio 1.3 (1.0-2.8); Alkaline Phosphatase 50 U/L (38-126); Aspartate Aminotransferase 57 IU/L (17-59); BUN Creatinine Ratio 18.6 (6-22); Bilirubin Total 0.6 mg/dL (0.2-1.3); Blood Urea Nitrogen 19 mg/dL (9-20); Carbon Dioxide 28 mmol/L (22-32); Chloride 104 mmol/L (98-107); Estimated Glomerular Filt Rate > 60 mL/min (>60); Globulin 3.2 g/dL (1.7-4.1); Glucose 108 mg/dL (80-110); HEMOLYSIS < 15 (0-50); Potassium 4.1 mmol/L (3.4-5.1); Sodium 140 mmol/L (137-145); Total Protein 7.5 g/dL (6.3-8.2); Uric Acid 5.2 mg/dL (3.5-8.5)
[2023-03-21 17:46] LABS: High Sensitivity CRP - Cardiac < 0.3 mg/L (1.0-3.0)
[2023-03-21 17:48] LABS: Erythrocyte Sedimentation Rate 5 MM/HR (0-15)
[2023-03-21 17:53] LABS: Rheumatoid Factor < 8.6 IU/mL (<12.0)
[2023-03-21 18:11] LABS: Thyroid Stimulating Hormone 1.92 uIU/mL (0.47-4.68)
[2023-03-22 18:54] LABS: SS A Ro Sjogrens Antibody < 0.2 AI (0.0-0.9); SS B La Sjogrens Antibody < 0.2 AI (0.0-0.9)
[2023-03-24 18:35] LABS: ANA Screen, IFA Positive (.)
== END ==
PROVIDERS: Family Provider Family Medicine; PCP Family Medicine; Referring Provider Ophthalmology; Visit Provider Ophthalmology
DX: E11.9 Type 2 diabetes mellitus without complications (principal)
CPT/HCPCS: 36415; 80053; 84443; 84550; 85025; 85651; 86038; 86140; 86235; 86430

== ENCOUNTER → 2024-02-21 07:53 | Outpatient (CLI) | payer MEDICARE, SELFPAY ==
[2024-02-21 10:01] LABS: Add Manual Diff / Slide Review NO; Basophils Absolute Auto 0 /uL (0-100); Basophils Percent Auto 0.5 % (0-2); Eosinophils Absolute Auto 200 /uL (0-450); Eosinophils Percent Auto 2.1 % (2-4); Hematocrit 45.3 % (41-53); Hemoglobin 15.5 g/dL (13.5-17.5); Lymphocytes Absolute Auto 2300 /uL (1100-4500); Mean Corpuscular HGB Conc 34.3 % (30-36); Mean Corpuscular Hemoglobin 31.8 PG (26-34); Mean Corpuscular Volume 92.7 fL (80-100); Monocytes Absolute Auto 800 /uL (0-900); Neutrophils Absolute Auto 4700 /uL (1500-7000); Neutrophils Percent Auto 58.4 % (50-75); Platelet Count 206 X10^3/uL (150-400); Red Blood Cell Count 4.89 X10^6/uL (4.5-5.9); Red Cell Distribution Width 13.4 % (11.6-14.8); White Blood Cell Count 8.1 X10^3/uL (4.5-11.0)
[2024-02-21 10:19] LABS: Hemoglobin A1C% w Est Avg Glu 6.5 % (4.0-6.0)
[2024-02-21 10:34] LABS: Alanine Aminotransferase 44 IU/L (<50); Albumin 4.1 g/dL (3.5-5.0); Albumin Globulin Ratio 1.6 (1.0-2.8); Alkaline Phosphatase 48 U/L (38-126); Aspartate Aminotransferase 48 IU/L (17-59); BUN Creatinine Ratio 20.7 (6-22); Blood Urea Nitrogen 19 mg/dL (9-20); Carbon Dioxide 27 mmol/L (22-32); Chloride 109 mmol/L (98-107); Cholesterol 97 mg/dL (140-199); Estimated Glomerular Filt Rate > 60 mL/min (>60); Globulin 2.6 g/dL (1.7-4.1); Glucose 124 mg/dL (80-110); HDL Cholesterol 50 mg/dL (40-60); HEMOLYSIS < 15 (0-50); LDL Cholesterol Calculated 29 mg/dL (<100); Potassium 5.3 mmol/L (3.4-5.1); Sodium 141 mmol/L (137-145); Total Protein 6.7 g/dL (6.3-8.2); Triglycerides 88 mg/dL (35-150)
[2024-02-21 11:02] LABS: Prostate Specific Antigen Scrn 1.19 ng/mL (0.1-4.0)
== END ==
PROVIDERS: Family Provider Family Medicine; PCP Family Medicine; Referring Provider Family Medicine; Visit Provider Family Medicine
DX: Z12.5 Encounter for screening for malignant neoplasm of prostate (principal); I10 Essential (primary) hypertension; E11.9 Type 2 diabetes mellitus without complications; E78.2 Mixed hyperlipidemia
CPT/HCPCS: 36415; 80053; 80061; 83036; 85025; G0103

== ENCOUNTER 2024-07-12 10:16 | Day surgery (SDC) | payer MEDICARE, SELFPAY ==
--- NOTE | 2024-07-12 | PATH_ITS ---
[facility] Accession Number: [id number] No. of containers..02 Tissue . 01 Material submitted: . PART A: colon - DESCENDING POLYP PART B: colon - ASCENDING POLYP . 01 Diagnosis: Part A: DESCENDING POLYP: Tubular adenoma. . Part B: ASCENDING POLYP : Tubular adenoma. [facility] 07/16/2024 1449 Local . 01 Electronically signed: . Roland Cesar MD, Pathologist NPI- [id number] . 01 Gross description: . A. Received in formalin with two patient identifiers and descending colon polyp, is a single ballesteros soft tissue fragment, 0.4 cm in greatest dimension, submitted in A1. . B. Received in formalin with two patient identifiers and ascending polyp is a single ballesteros soft tissue fragment, 0.6 cm in greatest dimension, submitted in B1. (KB:[id number]) /MRV 07/16/2024 1449 Local . 01 Pathologist provided ICD-10: D12.2, D12.4 . 01 CPT . 461715, 772505 Specimen Comment: A courtesy copy of this report has been sent to [phone] Performed at: 01 [facility] [address], [place], [place] [id number] MD Roland Cesar MD Phone: [phone]
[2024-07-12 10:41] VITALS: BP 157/67; PULSE 63; RESP 18; TEMP 36.1; O2SAT 97
--- NOTE | 2024-07-12 11:19 | PM.HP.1 ---
History of Present Illness History of Present Illness Date Patient Seen: 07/12/24 Time Patient Seen: 11:19 Chief complaint: Screening Colonoscopy Narrative: Mickey is an 83-year-old man who presents for a colonoscopy. His last colonoscopy was in [address] Graham and a tubular adenoma was removed. 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 Sister No problems noted. Social History Smoking Status: Never smoker alcohol intake: never Meds Home Medications and Allergies Home Medications Medication Instructions Recorded Confirmed Type aspirin 81 mg tablet,delayed 81 mg PO DAILY ##0 05/25/17 07/12/24 History release (Aspir-) cholecalciferol (vitamin D3) 125 5,000 units PO DAILY ##0 05/25/17 07/12/24 History mcg (5,000 unit) capsule multivitamin (Multiple Vitamins 1 tab PO DAILY ##0 05/25/17 07/12/24 History tablet) omega 3-mjo-wnn-fish oil 1,000 mg 1,000 mg PO DAILY ##0 05/25/17 07/12/24 History (120 mg-180 mg) capsule (Fish Oil) CO Q10 1 tab PO DAILY 11/21/19 07/12/24 History blood-glucose meter (Blood Glucose #1 ea 02/28/20 04/27/24 Rx Monitoring kit) blood sugar diagnostic (Blood #100 ea 03/03/20 04/27/24 Rx Glucose Test strips) lancets (Fingerstix Lancets) #100 ea 03/03/20 04/27/24 Rx nitroglycerin 0.4 mg sublingual 0.4 mg sublingual Q5M PRN chest 03/03/21 07/12/24 Rx tablet (Nitrostat) pain #25 tabs rosuvastatin 40 mg tablet See Rx Instructions .Route 01/25/22 07/12/24 Rx .COMPLEX #90 tabs metoprolol succinate 200 mg 200 mg PO BID #180 tabs 06/23/22 07/12/24 Rx tablet,extended release 24 hr ezetimibe 10 mg tablet 10 mg PO DAILY 12/31/22 07/12/24 History metformin 500 mg tablet 500 mg PO BID #180 tabs 03/27/24 07/12/24 Rx donepezil 10 mg tablet 10 mg PO BEDTIME #30 tabs 05/30/24 07/12/24 Rx sodium,potassium,mag sulfates 17.5 See Rx Instructions PO .COMPLEX 06/18/24 07/12/24 Rx gram-3.13 gram-1.6 gram oral soln #354 mL (Suprep Bowel Prep Kit) Allergies Allergy/AdvReac Type Severity Reaction Status Date / Time No Known Drug Allergies Allergy Verified 07/12/24 10:40 Exam Vital Signs (past 8 hours): - 07/12/24 10:41 Temperature 96.9 F L Pulse Rate 63 Respiratory Rate 18 Blood Pressure 157/67 H Pulse Oximetry 97 Oxygen Delivery Method Room Air Oxygen Delivery Method Room Air Const General: No acute distress Resp Effort & Inspection: normal respiratory effort Assessment & Plan Assessment and plan (1) Hx of colonic polyp: Status: Acute Plan We reviewed the risks and benefits of colonoscopy and he would like to proceed. Time-Based Coding :: [TOTAL MINUTES] spent with patient and on the chart (including review of chart, obtaining history, exam, reviewing outside data, placing orders, documenting exam and treatment plan, and counseling patient) on [DATE].
--- NOTE | 2024-07-12 11:41 | PM.OP.COLON ---
Operative Date/Time/Diagnoses Date of procedure: 07/12/24 Time of procedure: 11:41 Pre-op diagnosis: History of polyps Post-op diagnosis: same Procedure & Clinicians Study performed: Colonoscopy Same procedure as scheduled: Yes Surgeon: Leno Camara Procedure Notes Procedure in detail: Surgeon: Leno Camara MD Anesthesia: Siddharth Boyer MD Procedure: The patient was brought to the endoscopy suite, placed in left lateral decubitus position. The patient was connected to monitoring devices. A time-out was performed. Sedation was administered. Once the patient was adequately sedated, a digital rectal exam was performed and was normal. The scope was then inserted and advanced to the cecum where the appendiceal orifice was identified and photographed. The scope was then slowly withdrawn over greater than 6 minutes. The mucosa was thoroughly inspected. There was a 5 mm polyp in the ascending colon removed with a cold snare. There was a 5 mm polyp in the descending colon removed with a cold snare. There were scattered sigmoid colon diverticulosis. The scope was retroflexed in the rectum. There were internal hemorrhoids. The scope was straightened and removed. The patient was awakened and brought to recovery. Scope withdrawal time: 6 minutes Sedation time: 13 minutes EBL: 5 mL Findings: 5 mm ascending colon polyp, 5 mm descending colon polyp, sigmoid colon that diagnosis and internal hemorrhoids Post-procedure Disposition: PACU
[2024-07-12 11:43] VITALS: BP 79/51; PULSE 68; RESP 12; TEMP 36.2; O2SAT 92
[2024-07-12 11:49] VITALS: BP 88/56; PULSE 67; RESP 12; O2SAT 92
[2024-07-12 11:56] VITALS: BP 113/68; PULSE 67; RESP 21; O2SAT 95
[2024-07-12 12:01] VITALS: BP 123/74; PULSE 64; RESP 16; O2SAT 95
[2024-07-12 12:04] VITALS: BP 112/74; PULSE 66; RESP 16; TEMP 36.3; O2SAT 94
== END 2024-07-12 12:10 | disposition home or self-care (01) ==
PROVIDERS: Family Provider Family Medicine; PCP Family Medicine; Referring Provider Surgery; Visit Provider Surgery
PROC: 0DJD8ZZ Inspection of Lower Intestinal Tract, Via Natural or Artificial Opening Endoscopic (ICD-10-PCS; CPT 45378; principal; 2024-07-12 11:30)
DX: Z12.11 Encounter for screening for malignant neoplasm of colon (principal); Z86.0100 Personal history of colon polyps, unspecified; K57.30 Diverticulosis of large intestine without perforation or abscess without bleeding; K64.8 Other hemorrhoids; D12.2 Benign neoplasm of ascending colon; D12.3 Benign neoplasm of transverse colon
CPT/HCPCS: 45385; J2704

== ENCOUNTER → 2025-03-20 08:37 | Outpatient (CLI) | payer OTHER, SELFPAY ==
[2025-03-20 09:54] LABS: Hematocrit 45.7 % (41-53); Hemoglobin 15.7 g/dL (13.5-17.5); Mean Corpuscular HGB Conc 34.3 % (30-36); Mean Corpuscular Hemoglobin 31.7 PG (26-34); Mean Corpuscular Volume 92.5 fL (80-100); Platelet Count 204 X10^3/uL (150-400); Red Blood Cell Count 4.94 X10^6/uL (4.5-5.9); Red Cell Distribution Width 13.8 % (11.6-14.8)
[2025-03-20 10:44] LABS: BUN Creatinine Ratio 13.8 (6-22); Blood Urea Nitrogen 13 mg/dL (9-20); Calcium 9.2 mg/dL (8.4-10.2); Carbon Dioxide 24 mmol/L (22-32); Chloride 106 mmol/L (98-107); Cholesterol 110 mg/dL (140-199); Estimated Glomerular Filt Rate > 60 mL/min (>60); Glucose 125 mg/dL (70-99); HDL Cholesterol 54 mg/dL (40-60); HEMOLYSIS < 15 (0-50); LDL Cholesterol Calculated 39 mg/dL (<100); Potassium 4.7 mmol/L (3.4-5.1); Sodium 140 mmol/L (137-145); Triglycerides 85 mg/dL (35-150)
== END ==
PROVIDERS: PCP Family Medicine; Referring Provider Internal Medicine Cardiovascular Disease; Visit Provider Internal Medicine Cardiovascular Disease
DX: I25.10 Atherosclerotic heart disease of native coronary artery without angina pectoris (principal)
CPT/HCPCS: 36415; 80048; 80061; 85027

== ENCOUNTER → 2025-04-04 09:33 | Outpatient (CLI) | payer OTHER, SELFPAY ==
[2025-04-04 10:28] LABS: Hemoglobin A1C% w Est Avg Glu 6.2 % (4.0-6.0)
== END ==
PROVIDERS: PCP Family Medicine; Referring Provider Family Medicine; Visit Provider Family Medicine
DX: E11.69 Type 2 diabetes mellitus with other specified complication (principal); Z12.5 Encounter for screening for malignant neoplasm of prostate; E78.5 Hyperlipidemia, unspecified; Z90.79 Acquired absence of other genital organ(s)
CPT/HCPCS: 36415; 83036; G0103